=== PATIENT | female | born 1990 | race Caucasian/White ===

== ENCOUNTER 2017-12-29 23:52 | Emergency (ER) | payer OTHER, MEDICAID ==
[~2017-12-29] VITALS: Ht 165.1 cm; Wt 68.0 kg
--- NOTE | 2017-12-30 00:20 | NUR ---
DR SANDRA ALDRICH MD AT BEDSIDE FOR MSE.
[2017-12-30 00:33] LABS: *BILIRUBIN,URIN NEGATIVE (NEGATIVE); *BLOOD, URINE 3+ (NEGATIVE); *CLARITY,URINE SLIGHTLY CLOUDY (CLEAR); *COLOR,URINE LIGHT YELLOW (YELLOW); *KETONES,URINE NEGATIVE (NEGATIVE); *PROTEIN,URINE 2+ (NEGATIVE); *UROBILINOGEN,URINE 0.2 E.U./dl (NORMAL); LEUKOCYTE ESTERASE ,URINE 2+ (NEGATIVE); NITRITE, URINE NEGATIVE (NEGATIVE); UGLUCOSE NEGATIVE (NEGATIVE)
[2017-12-30 00:38] LABS: *URINE HCG, QUAL NEGATIVE (NEGATIVE)
[2017-12-30 00:42] LABS: BACTERIA,URINE FEW /HPF (NONE SEEN); SQUAMOUS EPITHELIAL CELL,UR FEW /HPF (NONE SEEN); WBC,URINE 20-50 /HPF (0-3)
[2017-12-30 00:43] LABS: MUCUS,URINE FEW /LPF (0-FEW)
[2017-12-30] MEDS: CIPROFLOXACIN HCL 250 MG TABLET PO ONE (01:50)
[2017-12-30] MEDS ORDERED: CIPROFLOXACIN HCL 250 MG TABLET ONE (01:54)
--- NOTE | 2017-12-30 02:05 | NUR ---
Patient discharged to home in stable conditon. Written and verbal after care instructions given. Patient verbalizes understanding of instructions. PT ambulated from ER w/ steady gait. Pt took all personal belongings. No distress noted.
[2017-12-30 02:35] VITALS: BP 127/78
== END 2017-12-30 02:36 | disposition home or self-care (01) ==
LOC: ER 23:55
DX: N39.0 Urinary tract infection, site not specified (principal)
CPT/HCPCS: 84703; A4663